=== PATIENT | male | born 1960 | race African-American/Black ===

== ENCOUNTER 2018-09-11 17:13 | Emergency (ER) | payer OTHER ==
[~2018-09-11] VITALS: Ht 175.3 cm; Wt 97.5 kg
[2018-09-11 17:23] VITALS: BP 161/107
[2018-09-11] MEDS ORDERED: KETOROLAC TROMETHAMINE INJ 30 MG/ML VIAL ONE (17:56)
[2018-09-11] MEDS ORDERED: CYCLOBENZAPRINE 10 MG TABLET ONE (17:56)
[2018-09-11] MEDS ORDERED: DEXAMETHASONE SOD PHOSPHATE 10 MG/ML VIAL ONE (17:56)
[2018-09-11] MEDS ORDERED: KETOROLAC TROMETHAMINE INJ 60 MG/2 ML VIAL IM ONE (18:00)
[2018-09-11] MEDS ORDERED: DEXAMETHASONE SOD PHOSPHATE 4 MG/ML VIAL IM ONE (18:00)
[2018-09-11] MEDS ORDERED: CYCLOBENZAPRINE 10 MG TABLET PO ONE (18:00)
--- NOTE | 2018-09-11 18:41 | NUR ---
states "feeling better pain less." For discharge- Aftercare instructions given verbalized understanding Home ambuklatory Stable
== END 2018-09-11 18:43 | disposition home or self-care (01) ==
LOC: ER 17:15
DX: M54.41 Lumbago with sciatica, right side (principal); I10 Essential (primary) hypertension; J45.909 Unspecified asthma, uncomplicated
CPT/HCPCS: 96372 ×2; 99283; J1100; J1885

== ENCOUNTER 2021-11-24 09:44 | Emergency (ER) | payer MEDICAID, OTHER ==
[~2021-11-24] VITALS: Ht 177.8 cm; Wt 96.2 kg
--- NOTE | 2021-11-24 10:00 | NUR ---
RECIEVED PT 61 YRS MALE CAME FROM HOME WALKING C/O LOWER BACK PAIN AND RT LEG PAIN FOR 3 DAYS GOTING WORSE TODAY RESPIRATION SPONT AND EASY
--- NOTE | 2021-11-24 10:25 | NUR ---
SEEN BY DR. HALIMA RUIZ PT
[2021-11-24] MEDS ORDERED: MORPHINE SULFATE INJ 4 MG/ML DISP.SYRIN ONE (10:40)
[2021-11-24] MEDS ORDERED: KETOROLAC TROMETHAMINE INJ 30 MG/ML VIAL ONE (10:41)
[2021-11-24] MEDS ORDERED: FAMO20TA8 PO (10:50)
[2021-11-24] MEDS ORDERED: MAGN400T26 PO (10:50)
[2021-11-24] MEDS ORDERED: AMLO-213 PO (10:50)
[2021-11-24] MEDS ORDERED: MORPHINE SULFATE INJ 2 MG/ML DISP.SYRIN IM ONE (11:00)
[2021-11-24] MEDS ORDERED: KETOROLAC TROMETHAMINE INJ 60 MG/2 ML VIAL IM ONE (11:00)
[2021-11-24] MEDS ORDERED: PRED50TA PO (11:11)
[2021-11-24] MEDS ORDERED: OXYC-128 PO (11:11)
--- NOTE | 2021-11-24 11:15 | NUR ---
D/C INSTRACTION AND RX GIVEN TO PT FULLY AND VERBLIZED UNDERSTOOD D/C HOME AMPLATE WITH NO WEEKNESS
[2021-11-24 11:20] VITALS: BP 142/96
== END 2021-11-24 11:21 | disposition home or self-care (01) ==
LOC: ER 09:51
DX: M54.50 Low back pain, unspecified (principal); I10 Essential (primary) hypertension; Z79.899 Other long term (current) drug therapy
CPT/HCPCS: 96372 ×2; 99284; J1885; J2270